=== PATIENT | male | born 1980 | race Caucasian/White ===

== ENCOUNTER 2020-11-01 22:10 | Emergency (ER) | payer OTHER ==
[~2020-11-01] VITALS: Ht 185.4 cm; Wt 86.2 kg
[2020-11-01 22:10] VITALS: BP 126/79
[2020-11-01] MEDS ORDERED: IBUPROFEN 400 MG TABLET PO ONE (23:00)
[2020-11-01] MEDS ORDERED: IBUPROFEN 400 MG TABLET ONE (23:11)
[2020-11-01] MEDS ORDERED: ACET-907 PO (23:26)
== END 2020-11-02 00:06 | disposition home or self-care (01) ==
LOC: ER 22:20
DX: S92.425A Nondisplaced fracture of distal phalanx of left great toe, initial encounter for closed fracture (principal); Z88.0 Allergy status to penicillin; W22.8XXA Striking against or struck by other objects, initial encounter; Y93.89 Activity, other specified; Y92.89 Other specified places as the place of occurrence of the external cause; Y99.8 Other external cause status
CPT/HCPCS: 73660-TC